=== PATIENT | male | born 1945 | race Caucasian/White ===

== ENCOUNTER → 2017-07-02 | Outpatient (CLI) | payer OTHER | END | disposition home or self-care (01) | LOC: PCVCCLINIC 10:00 | PROVIDERS: ATTEND Internal Medicine Cardiovascular Disease | DX: E78.00 Pure hypercholesterolemia, unspecified (principal); R00.2 Palpitations; Z79.899 Other long term (current) drug therapy | CPT/HCPCS: 80061; 93005; G0463 ==

== ENCOUNTER → 2017-07-07 | Outpatient (CLI) | payer OTHER ==
--- NOTE | 2017-07-07 18:51 | PCVCIMAG ---
APPROVED REPORT Exam: Stress Echocardiogram Indication: Lightheadedness, Fam hx CAD, Dyspnea, HLP Patient Location: Echo lab Stress Nurse: Lakeshia Tinoco, RN, Marsha Mann, RN Status: routine Ht: 5 ft 9 in HR: 75 bpm BP: 116/62 mmHg Rhythm: NSR Procedure The patient underwent an Exercise Stress Test using the Omi Protocol. Blood pressure, heart rate, and EKG were monitored. An Echocardiogram was performed by cad technician in four stages in quad fashion. At peak stress, four selected images were obtained and placed side by side with resting images for comparison. Stress Test Details Stress Test: Exercise stress testing was performed using a Omi protocol. HR Resting HR: 75 bpmMax Heart Rate (APMHR): 147 bpm Max HR Achieved: 155 bpmTarget HR (85% APMHR): 124 bpm % of APMHR: 105 Recovery HR: 78 bpm HR response to stress: Normal HR response to stress BP Resting BP: 116/62 mmHg Max BP: 178/80 mmHg Recovery BP: 106/68 mmHg ECG Resting ECG: Sinus Rhythm Stress ECG: Sinus Rhythm ST Change: Normal Arrhythmia: Occasional PVCs or PACs Recovery ECG: Sinus Rhythm Recovery ST Change: Normal Recovery Arrhythmia: Occasional PVCs or PACs Clinical Reason for Termination: Maximal effort Exercise duration: 13 min 31 sec Highest Stage Achieved: Stage 5: 5.0 mph at 18% grade. Exercise capacity: 17.2 METs Overall Exercise Capacity for Age: Excellent Pre-Stress Echo The resting Echocardiogram showed normal left ventricular contractility with an estimated Ejection Fraction of about >55%. Normal wall motion in all segments on baseline images. Post-Stress Echo The stress Echocardiogram showed normal left ventricular contractility with an estimated Ejection Fraction of about 65%. Normal augmentation of wall motion in all segments on post stress images. Clinical No clinical or ECG evidence for ischemia. Conclusion Clinical Response: Non-ischemic Exercise Capacity: Superior Stress ECG Response: Non-ischemic Stress Echo Images: Non-ischemic The left ventricle is normal in size and wall thickness in both the rest and stress images. Other Information Study Quality: Adequate <Conclusion> The left ventricle is normal in size and wall thickness in both the rest and stress images.
== END | disposition home or self-care (01) ==
LOC: PCVCIMAG 15:04
PROVIDERS: ATTEND Internal Medicine Cardiovascular Disease
DX: I49.3 Ventricular premature depolarization (principal); I49.1 Atrial premature depolarization; E78.00 Pure hypercholesterolemia, unspecified; Z82.49 Family history of ischemic heart disease and other diseases of the circulatory system
CPT/HCPCS: 93325; 93351